=== PATIENT | male | born 1975 | race Caucasian/White ===

== ENCOUNTER 2017-02-03 06:25 | Emergency (ER) | payer OTHER ==
[~2017-02-03] VITALS: Ht 188 cm; Wt 94.8 kg
[~2017-02-03 06:25] MED LIST: NAPROSYN500 MG PO
[2017-02-03 06:41] VITALS: BP 101/57
--- NOTE | 2017-02-03 06:47 | NUR ---
TO ER ED 8
--- NOTE | 2017-02-03 06:48 | NUR ---
PT IS 41/M BIB SELF TO ED WITH C/O COUGH X 3 DAYS, 8/10 PAIN PT STATES NO MED HX. DENIES N/V/D; SKIN IS PINK/WARM/DRY; AAOX4 WITH EVEN AND STEADY GAIT; LUNGS CLEAR BL; HR EVEN AND REGULAR; PT DENIES ANY FEVER, CP, SOB, OR COUGH AT THIS TIME; PATIENT STATES PAIN OF 8/10 AT THIS TIME; VSS; PATIENT POSITIONED FOR COMFORT; HOB ELEVATED; BEDRAILS UP X2; BED DOWN. ER MD MADE AWARE OF PT STATUS.
--- NOTE | 2017-02-03 07:05 | NUR ---
Patient being evaluated by physician at bedside.
[2017-02-03] MEDS ORDERED: KETOROLAC 30 MG/ML VIAL IM ONE (07:10)
--- NOTE | 2017-02-03 07:17 | NUR ---
Pt report given to ALEKSANDER PEDRO. Transfer of care at this time.
--- NOTE | 2017-02-03 07:35 | NUR ---
Patient discharged with v/s stable. Written and verbal after care instructions given and explained. Patient alert, oriented and verbalized understanding of instructions. Ambulatory with steady gait. All questions addressed prior to discharge. ID band removed. Patient advised to follow up with PMD. Rx of PREDNISONE AND GUAIATUSSIN given. Patient educated on indication of medication including possible reaction and side effects. Opportunity to ask questions provided and answered.ADVISED PT TO INCREASE FLUID INTAKE TO DISSOLVE PHLEGM AND TO BE HYDRATED.
[2017-02-03 07:37] VITALS: BP 107/66
== END 2017-02-03 07:35 | disposition home or self-care (01) ==
LOC: MED 06:25
DX: J20.9 Acute bronchitis, unspecified (principal); Z88.0 Allergy status to penicillin; Z90.89 Acquired absence of other organs
CPT/HCPCS: 96372; 99283; J1885